=== PATIENT | male | born 1960 | race American Indian/Alaskan Native ===

== ENCOUNTER 2019-05-13 10:12 | Emergency (ER) | payer OTHER ==
[2019-05-13 10:32] VITALS: BP 132/79
[2019-05-13] MEDS ORDERED: IBUPROFEN PO ONE (10:46)
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
== END 2019-05-13 12:13 | disposition home or self-care (01) ==
LOC: ED 10:12
DX: R07.89 Other chest pain (principal); M79.604 Pain in right leg; I10 Essential (primary) hypertension; Z79.899 Other long term (current) drug therapy; V49.49XA Driver injured in collision with other motor vehicles in traffic accident, initial encounter; Y93.89 Activity, other specified; Y92.488 Other paved roadways as the place of occurrence of the external cause; Y99.8 Other external cause status
CPT/HCPCS: 71111; 99283